=== PATIENT | female | born 1945 | race Caucasian/White ===

== ENCOUNTER → 2016-11-18 | Outpatient (CLI) | payer BC ==
[~2016-11-18] MED LIST: ASPCH81X PO; BENICAR PO; CALC-354 PO; CHOL20009 PO; ESTR1CRE PV; LEVO88TA PO; MULTCHW PO; NAPHDRO11 OP; SELE1TAB PO; VITA400C28 PO
== END | disposition home or self-care (01) ==
LOC: C.LABBFT 11:10
PROVIDERS: ATTEND Internal Medicine
DX: Z11.59 Encounter for screening for other viral diseases (principal); E03.9 Hypothyroidism, unspecified

== ENCOUNTER → 2017-05-20 | Outpatient (CLI) | payer BC ==
[2017-05-20 12:13] LABS: BASO % 0.3 %; BASO ABS # 0.02 K/uL (0-0.2); COMPLETE YES; EOS % 1.4 %; HEMATOCRIT 42.6 % (37-47); LYMPH ABS # 2.03 K/uL (1.2-3.4); MEAN CELL VOLUME 92.4 fL (80-100); MEAN CORPUSCULAR HGB CONC 33.6 g/dl (32-36); MEAN PLATELET VOLUME 11.3 fL (7.4-10.4); MONO % 10.1 %; NEUT % 56.2 %; PLATELET COUNT 233 K/uL (130-400); RED BLOOD COUNT 4.61 M/uL (4.2-5.4); WHITE BLOOD COUNT 6.34 K/uL (4.8-10.8)
[2017-05-20 12:25] LABS: ALT/SGPT 24 U/L (12-78); BLOOD UREA NITROGEN 23 mg/dl (7-18); BUN/CREATININE RATIO 16.2 (10-20); CALCIUM 9.7 mg/dl (8.5-10.1); CARBON DIOXIDE 24 mmol/L (21-32); CHLORIDE 106 mmol/L (98-107); CHOLESTEROL 194 mg/dl (0-200); GLUCOSE 86 mg/dl (70-99); POTASSIUM 4.6 mmol/L (3.5-5.1); SODIUM 138 mmol/L (136-145); TRIGLYCERIDES 61 mg/dl (0-150); VERY LOW DENSITY LIPOPROT CALC 12 mg/dl
[2017-05-20 12:35] LABS: ALB/GLOB RATIO 1.1 (0.9-2); ALKALINE PHOSPHATASE 65 U/L (45-117); AST/SGOT 20 U/L (15-37); CHOLESTEROL/HDL RATIO 2.7; HDL CHOLESTEROL 72 mg/dl; LDL CHOLESTEROL CALCULATED 110 mg/dl; THYROID STIMULATING HORMONE 0.798 uIu/ml (0.300-4.500)
[2017-05-20 15:14] LABS: URINE APPEARANCE CLEAR (CLEAR); URINE BILIRUBIN NEG (NEG); URINE COLOR YELLOW; URINE EPITHELIAL CELL AUTO 0-5 /lpf (0-5); URINE NITRITE NEG (NEG); URINE SPECIFIC GRAVITY 1.015 (1.000-1.030); UROBILINOGEN NEG (NEG); ZZUR CULT IF INDIC CLEAN CATCH YES
[2017-05-20 15:22] LABS: MANUAL MICROSCOPIC REQUIRED? NO; REVIEW REQ? NO
--- NOTE | 2017-06-03 08:11 | CODING QUERY MEDICAL NECESSITY ---
CQSUPPORTING DIAGNOSIS NEEDED A supporting diagnosis is required for the test/procedure performed on this patient in order for us to be reimbursed by the patient's insurance. Please provide a supporting diagnosis for the following test/procedure listed below next to the test name along with your signature. *If there is no additional diagnosis for this patient that would support the following test/procedure please document that below next to the test/procedure. Test(s)/Procedure(s) that require a supporting diagnosis: LIZET 05/20/17 URINE CULTURE Provider Signature: Date: Thank you Sarah Colin [employer] Information Management Once completed, please kindly fax back to [phone] For questions please call [phone]
== END | disposition home or self-care (01) ==
LOC: C.LABBFT 08:16
PROVIDERS: ATTEND Internal Medicine
DX: I10 Essential (primary) hypertension (principal); E03.9 Hypothyroidism, unspecified; Z13.6 Encounter for screening for cardiovascular disorders; M81.0 Age-related osteoporosis without current pathological fracture; N39.0 Urinary tract infection, site not specified

== ENCOUNTER → 2017-06-02 | Outpatient (CLI) | payer BC ==
[2017-06-02 12:20] LABS: BLOOD UREA NITROGEN 18 mg/dl (7-18); BUN/CREATININE RATIO 18.1 (10-20); CALCIUM 9.6 mg/dl (8.5-10.1); CARBON DIOXIDE 26 mmol/L (21-32); CHLORIDE 105 mmol/L (98-107); GLUCOSE 85 mg/dl (70-99); PHOSPHORUS 2.8 mg/dl (2.5-4.9); POTASSIUM 4.7 mmol/L (3.5-5.1); SODIUM 138 mmol/L (136-145)
== END | disposition home or self-care (01) ==
LOC: C.LABBFT 10:19
PROVIDERS: ATTEND Internal Medicine
DX: N28.9 Disorder of kidney and ureter, unspecified (principal)

== ENCOUNTER → 2017-07-23 | Outpatient (CLI) | payer BC ==
--- NOTE | 2017-07-23 14:20 | MAMMOGRAPHY REPORT ---
UNILATERAL LEFT DIGITAL SCREENING MAMMOGRAM TOMOSYNTHESIS WITH CAD: 07/23/2017 CLINICAL HISTORY: Asymptomatic. Personal history of breast cancer. TECHNIQUE: Breast tomosynthesis in addition to standard 2D mammography was performed. Current study was also evaluated with a Computer Aided Detection (CAD) system. Left CC and MLO 2-D and tomosynthes is images were obtained. COMPARISON: Comparison is made to exams dated: 07/22/2016 mammogram, 07/20/2015 mammogram, 07/18/2014 ma mmogram, 06/22/2013 mammogram, 06/18/2012 mammogram, and 06/18/2011 mammogram - [facility] er. BREAST COMPOSITION: There are scattered areas of fibroglandular density in the left breast. FINDINGS: There are no suspicious masses, calcifications, or areas of architectural distortion noted in the left breast. There has been no significant interval change compared to prior exams. A biopsy marker clip is again noted within the left upper outer quadrant. Scattered benign-appearing calcifi cations are not significantly changed. IMPRESSION: ACR BI-RADS CATEGORY 2: BENIGN There is no mammographic evidence of malignancy in the left breast. A 1 year screening mammogram is r ecommended. The patient will receive written notification of the results. Approximately 10% of breast cancers are not detected with mammography. A negative mammographic report should not delay biopsy if a clinically suggestive mass is present. Rena Boyd M.D. /:07/23/2017 12:09:29 Digital Analyst: Krysta SCHMITT(R)(M), [facility] letter sent: Normal 1/2 BI-RADS Code: ACR BI-RADS Category 2: Benign
== END | disposition home or self-care (01) ==
LOC: C.MAMM 11:41
PROVIDERS: ATTEND Obstetrics & Gynecology
DX: Z12.31 Encounter for screening mammogram for malignant neoplasm of breast (principal); Z90.11 Acquired absence of right breast and nipple

== ENCOUNTER → 2017-10-20 | Outpatient (CLI) | payer BC ==
[2017-10-20 13:16] LABS: CHOLESTEROL/HDL RATIO 1.6
== END | disposition home or self-care (01) ==
LOC: C.LABBFT 09:09
PROVIDERS: ATTEND Internal Medicine
DX: E78.5 Hyperlipidemia, unspecified (principal)

== ENCOUNTER → 2018-06-15 | Outpatient (CLI) | payer BC | END | disposition home or self-care (01) | LOC: C.LABBFT 08:54 | PROVIDERS: ATTEND Internal Medicine | DX: E03.9 Hypothyroidism, unspecified (principal) ==

== ENCOUNTER 2022-04-20 13:52 | Inpatient (IN) ==
[2022-04-20 14:32] LABS: Basophils # (auto) 0.02 K/uL (0-0.2); Basophils % (auto) 0.2 %; Eosinophils # (auto) 0.15 K/uL (0-0.5); Eosinophils % (auto) 1.3 %; Hematocrit (blood only) 42.8 % (37-47); Hemoglobin 14.5 g/dL (12.0-16.0); Immature Granulocytes # (auto) 0.03 K/uL (0.00-0.02); Immature Granulocytes % (auto) 0.3 %; Lymphocytes # (auto) 2.22 K/uL (1.2-3.4); Mean Corpuscular Hemoglobin 31.3 pg (25-34); Mean Corpuscular Hgb Conc 33.9 g/dL (32-36); Mean Corpuscular Volume 92.2 fL (80-100); Monocytes # (auto) 0.67 K/uL (0.11-0.59); Monocytes % (auto) 5.7 %; Neutrophils # (auto) 8.58 K/uL (1.4-6.5); Neutrophils % (auto) 73.5 %; Platelet Count 220 K/uL (130-400); RDW Coefficient of Variation 13.9 % (11.5-14.5); Red Blood Count 4.64 M/uL (4.2-5.4); White Blood Count 11.67 K/uL (4.8-10.8)
[2022-04-20 14:51] LABS: Albumin Globulin Ratio 1.7 (0.9-2); Albumin Level 4.4 gm/dl (3.4-5.0); BUN Creatinine Ratio 20.6 (10-20); Bilirubin,Total 1.5 mg/dl (0.2-1.0); Calcium 10.3 mg/dl (8.5-10.1); Creatinine Clr Calc Pharmacy 44.9 ml/min; Est GFR (African American) 61.9 ml/min; Est GFR (Non-African American) 53.4 ml/min; Globulin 2.6 gm/dl (2.5-4.0); Potassium 3.7 mmol/L (3.5-5.1)
[2022-04-20 15:38] LABS: Appearance Urine Clear (Clear); Bacteria Urine Automated 1+ (Negative); Bilirubin Urine Negative (Negative); Blood Urine Negative (Negative); Cast Urine Automated 0 /lpf (0-5); Color Urine Yellow; Glucose Urine UA Negative (Negative); Ketones Urine Negative (Negative); Leukocyte Esterase Urine Trace (Negative); Nitrite Urine Negative (Negative); Protein Urine Negative (Negative); RBC Urine Automated 0-4 /hpf (0-4); Specific Gravity Urine 1.011 (1.000-1.030); Urobilinogen Urine Negative (Negative); pH Urine 7.5 (4.5-7.5)
[2022-04-20] MEDS ORDERED: SODIUM CHLORIDE 0.9% 1000ML 1,000 ML IV ONE (15:38)
[2022-04-20] MEDS ORDERED: FAMOTIDINE 20MG IV PUSH 20 MG/5 ML SYR IV STA (15:38)
[2022-04-20] MEDS ORDERED: ACETAMINOPHEN 1,000 MG/100 ML VIAL IV STA (15:38)
[2022-04-20] MEDS ORDERED: ONDANSETRON INJ 2 MG/ML 2 ML VIAL IV STA (15:38)
[2022-04-20] MEDS ORDERED: MoRPHine SULFATE 2 MG/ML CARP IV STA (15:38)
[2022-04-20] MEDS ORDERED: OPTIRAY 320 100ml IV ONE (16:28)
--- NOTE | 2022-04-20 17:05 | CT Scan Report ---
CT abd pelvis IV con only CLINICAL HISTORY: upper abdominal pain TECHNIQUE: Helical axial images of the abdomen and pelvis were obtained and displayed. Automated dose lowering techniques and/or adjustment according to patient size were utilized for this exam. This e xam was performed with intravenous contrast. CT DOSE: 321.74 mGy.cm COMPARISON: None available at the time of this dictation. FINDINGS: Lower chest: Cardiomegaly is partially visualized. Liver: Unremarkable. No focal lesions are seen. Gallbladder and biliary tree: Pericholecystic fluid is seen. There is sharp tapering of a dilated com mon bile duct measuring up to 10 mm. Intrahepatic biliary ductal dilation is also seen. Pancreas: Dilated pancreatic duct is seen measuring up to 4 mm in the distal body. Spleen: Unremarkable. Adrenals: Unremarkable. Kidneys and ureters: Multiple renal cysts are seen. Bladder: Unremarkable. Reproductive organs: Multiple calcified fibroids are seen. Bowel: Diverticulosis is seen without evidence of diverticulitis. The appendix is unremarkable. Lymph nodes Retroperitoneal: Unremarkable. Mesenteric: Unremarkable. Pelvic: Unremarkable. Peritoneum: Normal. Vessels: Atherosclerotic calcifications are seen. Abdominal wall: Unremarkable. Bones: Degenerative changes in the visualized spine. IMPRESSION: There is dilation of the intra and extra hepatic biliary ducts and the pancreatic duct with sharp tap ering of the biliary duct as it traverses the pancreas. Findings are suspicious for pancreatic mass. Further evaluation can be performed by EUS and/or MRCP. ACT 112: Negative or not required by law. Electronically signed by: Slava Monae M.D. 04/20/2022 5:02 PM
--- NOTE | 2022-04-20 17:51 | History & Physical Report ---
Date of Service April 20, 2022 Assessment & Plan (1) Abdominal pain: Plan: Admit patient to a general medical bed CT reviewed, patient has benign abdominal pain and acute cholecystitis seems less likely. Pancreatic duct dilatation is more concerning for possible obstructing pancreatic mass Will order MRCP Follow LFTs We will keep on a low-fat diet for now We will asked GI to evaluate, depending on MRCP results patient may require an ERCP (2) Hypothyroidism: Plan: Continue levothyroxine as ordered (3) Hypertension: Plan: Continue olmesartan or pharmacy equivalent (4) Hyperlipidemia: Plan: Continue atorvastatin 20 mg for now History of Present Illness Chief Complaint: abd pain Primary Care Provider: Sami Funes MD This is a 76-year-old female with past medical history of hypertension, hypothyroidism, and breast cancer 2003 status post right mastectomy that presents today complaining of abdominal pain. Patient is accompanied by her and both are pleasant and good historians. Patient tells me that about 3 days ago she had an episode of abdominal pain. This was epigastric and felt like indigestion although it was much more severe and lasted much longer. She took an antacid but did not have any relief. The pain eventually resolved on its own. She did not think further about until earlier this morning when she had a recurrence of this pain. At this time it was much more severe and radiated to the center of her back. Again she took an antacid and waited and the pain seemed to resolve. At the time my evaluation she is entirely pain-free. She does note some fatigue but otherwise feels fine. She denies any other symptoms such as fever or chills, nausea or vomiting, or recent weight loss. She denies any changes to her urine. She does not feel that food made a difference in worsening or relieving her pain. Work-up involved LFTs which showed a mildly elevated bilirubin. CT of the abdomen and pelvis showed dilatation in the biliary tree that was suspicious for a pancreatic mass. Patient is now being admitted for further work-up. Allergies Allergy/AdvReac Type Severity Reaction Status Date / Time No Known Allergies Allergy Unknown Verified 11/27/21 09:30 Home Medications Medication Instructions Recorded Confirmed Type aspirin 81 mg tablet 81 mg PO DAILY tab 05/20/19 11/27/21 History cholecalciferol (vitamin D3) 50 2,000 units PO DAILY cap 05/20/19 11/27/21 History mcg (2,000 unit) capsule selenium 200 mcg tablet 200 mcg PO DAILY 05/20/19 11/27/21 History calcium carbonate 600 mg-vitamin 1 tab PO DAILY 11/16/19 11/27/21 History D3 20 mcg (800 unit) tablet (Caltrate with Vitamin D3) [id number] PO 11/16/19 11/27/21 History [Centrum Silver Women] vitamin E 400 unit capsule 400 units PO DAILY 11/16/19 11/27/21 History olmesartan 20 mg tablet 20 mg PO DAILY #90 tab 11/13/21 11/27/21 Rx cholecalciferol (vitamin D3) 50 50 mcg PO DAILY #30 cap 11/27/21 11/27/21 Rx mcg (2,000 unit) capsule atorvastatin 20 mg tablet 20 mg PO QPM #90 tab 02/06/22 Rx levothyroxine 75 mcg tablet 75 mcg PO DAILY #90 tab 02/06/22 Rx (Levoxyl) Past Med/Surg History Medical History Diverticulosis of colon History of malignant neoplasm of breast Hyperlipidemia Hypertension Hypothyroidism Internal hemorrhoids Menopausal symptoms Microscopic hematuria Osteoporosis Plantar fasciitis Postmenopausal Renal insufficiency Surgical History History of section History of mastectomy Family History Sister Stroke Leukemia Father Stroke Family/Other Diabetes Aunt Breast cancer Mother Intracranial hemorrhage Denies family history of Ovarian cancer Prostate cancer Myocardial infarction Colorectal cancer Social History Smoking Status: Never smoker Second Hand Exposure: No; Hx Alcohol Use: No Hx Substance Use: No Preferred Language: [place] Visual Impairment: No Limitations Hearing Ability: Normal marital status: Current Living Situation: Spouse current occupational status: retired current occupation: used to work at [employer] Feels Safe at Home: Yes Childhood Exposure to Second-Hand Smoke: Yes Dental Care, Regularly: Yes Physical Activity Frequency: Daily Seatbelt Use: always Sunscreen Use: Yes Review of Systems Constitutional: no fever, no chills, no weakness, no weight loss and no weight gain Eyes: as per Subjective / HPI Respiratory: no cough, no chest congestion, no dyspnea and no dyspnea on exertion Cardiovascular: no chest pain, no orthopnea, no palpitations, no lightheadedness and no edema Gastrointestinal: + abdominal pain and + heartburn; no nausea, no vomiting, no constipation and no diarrhea/loose stools Genitourinary: no dysuria, no difficulty urinating, no urinary frequency, no urinary hesitancy, no urinary urgency and no flank pain Musculoskeletal: no back pain, no neck pain, no joint pain, no stiffness and no myalgia Integumentary: no rash Neurologic: no gait abnormality, no unsteadiness, no falls and no generalized weakness Physical Exam Constitutional: cooperative; no acute distress nonjaundiced, anicteric Neck: trachea midline, no thyromegaly Respiratory: normal respiratory effort Auscultation: lungs clear to auscultation bilaterally; no crackles, no rales, no rhonchi and no wheezes Cardiovascular: Rate/Rhythm: regular rate and regular rhythm Heart Sounds: normal S1 and normal S2 Gastrointestinal (Abdomen): Inspection/Auscultation: abdomen normal to inspection Percussion/Palpation: abdomen soft; abdomen nontender, no guarding, abdomen not rigid and no hepatosplenomegaly Skin: no rashes, warm and dry Results & Data Results & Data ([facility]) Vital Signs (Past 12 Hours) Vital Signs Temp Pulse Pulse Resp BP BP Pulse Ox 04/20/22 17:25 87 17 166/88 H 98 04/20/22 14:22 67 20 174/87 H 100 04/20/22 13:57 36.6 C 79 18 172/96 H 97 Laboratory Results Laboratory Results WBC 11.67 K/uL (4.8-10.8) H 04/20/22 14:20 RBC 4.64 M/uL (4.2-5.4) 04/20/22 14:20 Hgb 14.5 g/dL (12.0-16.0) 04/20/22 14:20 Hct 42.8 % (37-47) 04/20/22 14:20 MCV 92.2 fL (80-100) 04/20/22 14:20 MCH 31.3 pg (25-34) 04/20/22 14:20 MCHC 33.9 g/dL (32-36) 04/20/22 14:20 RDW Std Deviation 47.0 fL (36.4-46.3) H 04/20/22 14:20 RDW Coeff of [place] 13.9 % (11.5-14.5) 04/20/22 14:20 Plt Count 220 K/uL (130-400) 04/20/22 14:20 MPV 11.0 fL (7.4-10.4) H 04/20/22 14:20 Immature Gran % (Auto) 0.3 % 04/20/22 14:20 Neut % (Auto) 73.5 % 04/20/22 14:20 Lymph % (Auto) 19.0 % 04/20/22 14:20 [place] % (Auto) 5.7 % 04/20/22 14:20 Eos % (Auto) 1.3 % 04/20/22 14:20 Baso % (Auto) 0.2 % 04/20/22 14:20 Neut # (Auto) 8.58 K/uL (1.4-6.5) H 04/20/22 14:20 Lymph # (Auto) 2.22 K/uL (1.2-3.4) 04/20/22 14:20 [place] # (Auto) 0.67 K/uL (0.11-0.59) H 04/20/22 14:20 Eos # (Auto) 0.15 K/uL (0-0.5) 04/20/22 14:20 Baso # (Auto) 0.02 K/uL (0-0.2) 04/20/22 14:20 Immature Gran # (Auto) 0.03 K/uL (0.00-0.02) H 04/20/22 14:20 Sodium 141 mmol/L (136-145) 04/20/22 14:20 Potassium 3.7 mmol/L (3.5-5.1) 04/20/22 14:20 Chloride 106 mmol/L (98-107) 04/20/22 14:20 Carbon Dioxide 26 mmol/L (21-32) 04/20/22 14:20 Anion Gap 9 (3-11) 04/20/22 14:20 BUN 21 mg/dl (6-23) 04/20/22 14:20 Creatinine 1.02 mg/dl (0.6-1.2) 04/20/22 14:20 Est Cr Clr Drug Dosing 44.9 ml/min 04/20/22 14:20 Est GFR ( Amer) 61.9 ml/min 04/20/22 14:20 Est GFR (Non-Af Amer) 53.4 ml/min 04/20/22 14:20 BUN/Creatinine Ratio 20.6 (10-20) H 04/20/22 14:20 Glucose 145 mg/dl (70-99(Fasting)) H 04/20/22 14:20 Calcium 10.3 mg/dl (8.5-10.1) H 04/20/22 14:20 Total Bilirubin 1.5 mg/dl (0.2-1.0) H 04/20/22 14:20 Direct Bilirubin 0.5 mg/dl (0-0.2) H 04/20/22 14:20 AST 128 U/L (13-39) H 04/20/22 14:20 ALT 52 U/L (7-52) 04/20/22 14:20 Alkaline Phosphatase 92 U/L (34-104) 04/20/22 14:20 Total Protein 7.0 gm/dl (6.0-8.3) 04/20/22 14:20 Albumin 4.4 gm/dl (3.4-5.0) 04/20/22 14:20 Globulin 2.6 gm/dl (2.5-4.0) 04/20/22 14:20 Albumin/Globulin Ratio 1.7 (0.9-2) 04/20/22 14:20 Lipase 35 U/L (11-82) 04/20/22 14:20 Urine Color Yellow 04/20/22 14:20 Urine Appearance Clear (Clear) 04/20/22 14:20 Urine pH 7.5 (4.5-7.5) 04/20/22 14:20 Ur Specific [place] 1.011 (1.000-1.030) 04/20/22 14:20 Urine Protein Negative (Negative) 04/20/22 14:20 Urine Glucose (UA) Negative (Negative) 04/20/22 14:20 Urine Ketones Negative (Negative) 04/20/22 14:20 Urine Blood Negative (Negative) 04/20/22 14:20 Urine Nitrite Negative (Negative) 04/20/22 14:20 Urine Bilirubin Negative (Negative) 04/20/22 14:20 Urine Urobilinogen Negative (Negative) 04/20/22 14:20 Ur Leukocyte Esterase Trace (Negative) H 04/20/22 14:20 Urine WBC (Auto) 1-5 /hpf (0-5) 04/20/22 14:20 Urine RBC (Auto) 0-4 /hpf (0-4) 04/20/22 14:20 U Hyaline Cast (Auto) 0 /lpf (0-5) 04/20/22 14:20 U Epithel Cells (Auto) 5-10 /lpf (0-5) H 04/20/22 14:20 Urine Bacteria (Auto) 1+ (Negative) H 04/20/22 14:20 Impressions Abdomen/Pelvis CT 04/20/22 15:38 CT abd pelvis IV con only CLINICAL HISTORY: upper abdominal pain TECHNIQUE: Helical axial images of the abdomen and pelvis were obtained and dis played. Automated dose lowering techniques and/or adjustment according to patient size were utilized for this exam. This exam was performed with intravenous contrast. CT DOSE: 321.74 mGy.cm COMPARISON: None available at the time of this dictation. FINDINGS: Lower chest: Cardiomegaly is partially visualized. Liver: Unremarkable. No focal lesions are seen. Gallbladder and biliary tree: Pericholecystic fluid is seen. There is sharp tapering of a dilated common bile duct measuring up to 10 mm. Intrahepatic biliary ductal dilation is also seen. Pancreas: Dilated pancreatic duct is seen measuring up to 4 mm in the distal body. Spleen: Unremarkable. Adrenals: Unremarkable. Kidneys and ureters: Multiple renal cysts are seen. Bladder: Unremarkable. Reproductive organs: Multiple calcified fibroids are seen. Bowel: Diverticulosis is seen without evidence of diverticulitis. The appendix is unremarkable. Lymph nodes Retroperitoneal: Unremarkable. Mesenteric: Unremarkable. Pelvic: Unremarkable. Peritoneum: Normal. Vessels: Atherosclerotic calcifications are seen. Abdominal wall: Unremarkable. Bones: Degenerative changes in the visualized spine. IMPRESSION: There is dilation of the intra and extra hepatic biliary ducts and the pancreatic duct with sharp tapering of the biliary duct as it traverses the pancreas. Findings are suspicious for pancreatic mass. Further evaluation can be performed by EUS and/or MRCP. ACT 112: Negative or not required by law. Electronically signed by: Slava Monae M.D. 04/20/2022 5:02 PM PG Care Time/CCT Total # of Minutes Spent Total Time Spent with Patient: Total time spent is greater than 50% in coordination of care (as documented) at patient's floor/unit and/or counseling patient: Coding Level of Care Code 07396 Initial Inpt Care Lvl 3 Diagnoses Hypothyroidism E03.9 Hypertension I10 Hypertension type: essential hypertension Hyperlipidemia E78.5 Abdominal pain R10.9 (1) Hypertension Hypertension type: essential hypertension Qualified Code(s): I10 - Essential (primary) hypertension
--- NOTE | 2022-04-20 18:24 | Emergency Department Note ---
Impression & Plan Epigastric abdominal pain, Common bile duct dilation, Dilated pancreatic duct, Elevated bilirubin ED Provider Note NAME: LULA HO AGE: 76 SEX: F ARRIVES VIA: Walk-In INFORMANT: Patient ED PROVIDER(S): Chencho Valerio MD CHIEF COMPLAINT: Abdominal pain PLAN: Disposition: Home MEDICAL DECISION MAKING: The patient is a pleasant 76-year-old woman with a past medical history of hypertension, hyperlipidemia who presents to the emergency department accompanied by her for evaluation of worsening abdominal pain which began last night after eating but resolved then returned and worsened this morning and has continued. She reports some mild associated nausea but denies any vomiting. She denies any fevers, chills, cough, congestion, symptoms. She reports the pain goes from her upper abdomen and radiates to her back. She denies any prior history of similar episodes. On arrival the patient is uncomfortable no acute distress, afebrile stable vital signs. She has mild epigastric tenderness without guarding or rebound. She has a negative Diana sign. WBC 11.6K, nonspecific. H/H and platelets within normal limits. Chemistry without metabolic acidosis. Total bilirubin 1.5 with direct bilirubin 0.5. AST 128 which are newly elevated. LFTs otherwise unremarkable. Lipase is not elevated. UA without convincing evidence of infection as epithelial cells are present and patient denies any urinary symptoms. CT of the abdomen pelvis was performed and demonstrates evidence of pancreatic ductal dilatation suspicious for underlying pancreatic mass. Upon reevaluation the patient was improved appearing following IV fluid hydration, APAP, morphine, famotidine, Zofran. I did review the patient's findings with her and plan for admission for further evaluation including ERCP. Case was discussed with Dr. Russ, [facility] [place], who will evaluate the patient for admission. Triage Nursing notes reviewed and agree them. Prior medical records reviewed Vital Signs: reviewed and remarkable for no significant abnormalities Differential diagnosis: Gastroenteritis, food borne illness, infections, appendicitis, diverticulitis, inflammatory bowel disease, obstruction, GI bleed, biliary pathology, volvulus, as well as other pathologies. ER treatment provided: See below. Diagnostics interpreted by me: ECG: NSR, 69 bpm, no ectopy, Nonspecific ST abnormality, no overt ST elevation or depression. Cardiac Monitoring: An order for continuous cardiac monitoring was placed and demonstrated NSR, 69 bpm, no ectopy. Laboratory studies: See below Imaging studies: See below Consultation(s): Case was discussed with Dr. Russ, [facility] hospitalist, who will evaluate the patient for admission. HPI: The patient is a pleasant 76-year-old woman with a past medical history of hypertension, hyperlipidemia who presents to the emergency department accompanied by her for evaluation of worsening abdominal pain which began last night after eating but resolved then returned and worsened this morning and has continued. She reports some mild associated nausea but denies any vomiting. She denies any fevers, chills, cough, congestion, symptoms. She reports the pain goes from her upper abdomen and radiates to her back. She denies any prior history of similar episodes. ROS: See above HPI for pertinent positives & negatives. A total of 10 systems reviewed and were otherwise negative. VITALS:See Below PHYSICAL EXAMINATION: GENERAL: Awake, alert, uncomfortable-appearing, in no distress HENT: Normocephalic, atraumatic. Oropharynx with dry mucous membranes and other samayoa unremarkable. EYES: Normal conjunctiva. Sclera non-icteric. NECK: Supple. No nuchal rigidity. FROM. No JVD. RESPIRATORY: Clear to auscultation. CARDIAC: Regular rate, normal rhythm. Extremities warm and well perfused. Pulses equal. ABDOMEN: Soft, non-distended. Mild epigastric tenderness without guarding or rebound. Negative Diana sign. No rebound or guarding. No masses. RECTAL: Deferred. MUSCULOSKELETAL: Chest examination reveals no tenderness. The back is symmetrical on inspection without obvious abnormality. There is no CVA tenderness to palpation. No joint edema. LOWER EXTREMITIES: Calves are equal size bilaterally and non-tender. No edema. No discoloration. NEURO: Normal sensorium. No sensory or motor deficits noted. SKIN: No rash or jaundice noted. Chencho Valerio MD Past Med/Surg History Medical History Diverticulosis of colon History of malignant neoplasm of breast Hyperlipidemia Hypertension Hypothyroidism Internal hemorrhoids Menopausal symptoms Microscopic hematuria Osteoporosis Plantar fasciitis Postmenopausal Renal insufficiency Surgical History History of section History of mastectomy Family History Sister Stroke Leukemia Father Stroke Family/Other Diabetes Aunt Breast cancer Mother Intracranial hemorrhage Denies family history of Ovarian cancer Prostate cancer Myocardial infarction Colorectal cancer Social History Smoking Status: Never smoker Second Hand Exposure: No; Do You Dip or Chew Tobacco: No; Tobacco Cessation Education Requested by Patient: No Hx Alcohol Use: No Hx Substance Use: No Preferred Language: German Communication Ability: Effective Visual Impairment: No Limitations Hearing Ability: Normal Timber Sprinkler Required: No Beliefs That Will Affect Care: None marital status: Current Living Situation: Spouse current occupational status: retired current occupation: used to work at [employer] Other Information That Helps Us Care for You: No Feels Safe at Home: Yes Safety Concerns: Feels Safe At This Time Childhood Exposure to Second-Hand Smoke: Yes Dental Care, Regularly: Yes Physical Activity Frequency: Daily Seatbelt Use: always Sunscreen Use: Yes Assistive Devices: None Allergies Allergies Allergy/AdvReac Type Severity Reaction Status Date / Time No Known Allergies Allergy Unknown Verified 04/20/22 19:15 Home Meds Home Medications Medication Instructions Recorded Confirmed cholecalciferol (vitamin D3) 50 2,000 units PO DAILY cap 05/20/19 04/20/22 mcg (2,000 unit) capsule selenium 200 mcg tablet 200 mcg PO DAILY 05/20/19 04/20/22 calcium carbonate 600 mg-vitamin 1 tab PO DAILY 11/16/19 04/20/22 D3 20 mcg (800 unit) tablet (Caltrate with Vitamin D3) vitamin E 400 unit capsule 400 units PO DAILY 11/16/19 04/20/22 aspirin 81 mg tablet,delayed 81 mg PO DAILY 04/20/22 04/20/22 release nbqgvdmuqmcv-Zs-xkua-minerals 1 tab PO DAILY 04/20/22 04/20/22 Previous Rx's Medication Instructions Recorded olmesartan 20 mg tablet 20 mg PO DAILY #90 tab 11/13/21 atorvastatin 20 mg tablet 20 mg PO QPM #90 tab 02/06/22 levothyroxine 75 mcg tablet 75 mcg PO DAILY #90 tab 02/06/22 (Levoxyl) Results & Data (ED) Vital Signs Vital Signs - 24 hr 04/20/22 13:57 04/20/22 14:22 04/20/22 17:25 Temperature 36.6 C Temperature Source Temporal Artery Scan Pulse Rate 79 Pulse Rate [Right Finger] 67 87 Respiratory Rate 18 20 17 Respiratory Effort / Characteristics Non-Labored Spontaneous Non-Labored Respiratory Depth Normal Normal Blood Pressure 172/96 H Blood Pressure [Right Arm] 174/87 H 166/88 H Blood Pressure Mean 121 Blood Pressure Mean [Right Arm] 116 114 Blood Pressure Position [Right Arm] Lying Pulse Oximetry 97 100 98 Oxygen Delivery Method Room Air Room Air Sepsis Recent Fever Within 48 Hours No Sepsis New/Unexplained Change in Mental Status No Sepsis Action Taken by Nursing No Action Required Laboratory Data Attestation: I reviewed the patient's lab results. Result diagrams: 04/20/22 14:20 04/20/22 14:20 Lab Results 04/20/22 04/20/22 04/20/22 Range/Units 14:20 14:20 14:20 WBC 11.67 H (4.8-10.8) K/uL RBC 4.64 (4.2-5.4) M/uL Hgb 14.5 (12.0-16.0) g/dL Hct 42.8 (37-47) % MCV 92.2 (80-100) fL MCH 31.3 (25-34) pg MCHC 33.9 (32-36) g/dL RDW Std Deviation 47.0 H (36.4-46.3) fL RDW Coeff of [place] 13.9 (11.5-14.5) % Plt Count 220 (130-400) K/uL MPV 11.0 H (7.4-10.4) fL Immature Gran % (Auto) 0.3 % Neut % (Auto) 73.5 % Lymph % (Auto) 19.0 % Boundary % (Auto) 5.7 % Eos % (Auto) 1.3 % Baso % (Auto) 0.2 % Neut # (Auto) 8.58 H (1.4-6.5) K/uL Lymph # (Auto) 2.22 (1.2-3.4) K/uL Boundary # (Auto) 0.67 H (0.11-0.59) K/uL Eos # (Auto) 0.15 (0-0.5) K/uL Baso # (Auto) 0.02 (0-0.2) K/uL Immature Gran # (Auto) 0.03 H (0.00-0.02) K/uL Sodium 141 (136-145) mmol/L Potassium 3.7 (3.5-5.1) mmol/L Chloride 106 (98-107) mmol/L Carbon Dioxide 26 (21-32) mmol/L Anion Gap 9 (3-11) BUN 21 (6-23) mg/dl Creatinine 1.02 (0.6-1.2) mg/dl Est Cr Clr Drug Dosing 44.9 ml/min Est GFR ( Amer) 61.9 ml/min Est GFR (Non-Af Amer) 53.4 ml/min BUN/Creatinine Ratio 20.6 H (10-20) Glucose 145 H (70-99(Fasting)) mg/dl Calcium 10.3 H (8.5-10.1) mg/dl Total Bilirubin 1.5 H (0.2-1.0) mg/dl Direct Bilirubin 0.5 H (0-0.2) mg/dl AST 128 H (13-39) U/L ALT 52 (7-52) U/L Alkaline Phosphatase 92 (34-104) U/L Total Protein 7.0 (6.0-8.3) gm/dl Albumin 4.4 (3.4-5.0) gm/dl Globulin 2.6 (2.5-4.0) gm/dl Albumin/Globulin Ratio 1.7 (0.9-2) Lipase 35 (11-82) U/L Urine Color Urine Appearance (Clear) Urine pH (4.5-7.5) Ur Specific Fischer (1.000-1.030) Urine Protein (Negative) Urine Glucose (UA) (Negative) Urine Ketones (Negative) Urine Blood (Negative) Urine Nitrite (Negative) Urine Bilirubin (Negative) Urine Urobilinogen (Negative) Ur Leukocyte Esterase (Negative) Urine WBC (Auto) (0-5) /hpf Urine RBC (Auto) (0-4) /hpf U Hyaline Cast (Auto) (0-5) /lpf U Epithel Cells (Auto) (0-5) /lpf Urine Bacteria (Auto) (Negative) 04/20/22 Range/Units 14:20 WBC (4.8-10.8) K/uL RBC (4.2-5.4) M/uL Hgb (12.0-16.0) g/dL Hct (37-47) % MCV (80-100) fL MCH (25-34) pg MCHC (32-36) g/dL RDW Std Deviation (36.4-46.3) fL RDW Coeff of [place] (11.5-14.5) % Plt Count (130-400) K/uL MPV (7.4-10.4) fL Immature Gran % (Auto) % Neut % (Auto) % Lymph % (Auto) % Boundary % (Auto) % Eos % (Auto) % Baso % (Auto) % Neut # (Auto) (1.4-6.5) K/uL Lymph # (Auto) (1.2-3.4) K/uL Boundary # (Auto) (0.11-0.59) K/uL Eos # (Auto) (0-0.5) K/uL Baso # (Auto) (0-0.2) K/uL Immature Gran # (Auto) (0.00-0.02) K/uL Sodium (136-145) mmol/L Potassium (3.5-5.1) mmol/L Chloride (98-107) mmol/L Carbon Dioxide (21-32) mmol/L Anion Gap (3-11) BUN (6-23) mg/dl Creatinine (0.6-1.2) mg/dl Est Cr Clr Drug Dosing ml/min Est GFR ( Amer) ml/min Est GFR (Non-Af Amer) ml/min BUN/Creatinine Ratio (10-20) Glucose (70-99(Fasting)) mg/dl Calcium (8.5-10.1) mg/dl Total Bilirubin (0.2-1.0) mg/dl Direct Bilirubin (0-0.2) mg/dl AST (13-39) U/L ALT (7-52) U/L Alkaline Phosphatase (34-104) U/L Total Protein (6.0-8.3) gm/dl Albumin (3.4-5.0) gm/dl Globulin (2.5-4.0) gm/dl Albumin/Globulin Ratio (0.9-2) Lipase (11-82) U/L Urine Color Yellow Urine Appearance Clear (Clear) Urine pH 7.5 (4.5-7.5) Ur Specific [place] 1.011 (1.000-1.030) Urine Protein Negative (Negative) Urine Glucose (UA) Negative (Negative) Urine Ketones Negative (Negative) Urine Blood Negative (Negative) Urine Nitrite Negative (Negative) Urine Bilirubin Negative (Negative) Urine Urobilinogen Negative (Negative) Ur Leukocyte Esterase Trace H (Negative) Urine WBC (Auto) 1-5 (0-5) /hpf Urine RBC (Auto) 0-4 (0-4) /hpf U Hyaline Cast (Auto) 0 (0-5) /lpf U Epithel Cells (Auto) 5-10 H (0-5) /lpf Urine Bacteria (Auto) 1+ H (Negative) Administered Medications Atorvastatin Calcium (Atorvastatin 20 Mg Tab) 20 mg PO QPM ALICJA Stop: 05/20/22 21:31 Last Admin: 04/20/22 22:33 Dose: 20 mg Documented by: [id number] Discontinued Medications Sodium Chloride (Nss 1000ml) 1,000 mls @ 999 mls/hr IV .Q1H1M ONE Stop: 04/20/22 16:38 Last Infusion: 04/20/22 16:58 Dose: 0 mls/hr Documented by: [id number] Admin: 04/20/22 15:47 Dose: 999 mls/hr Documented by: [id number] Acetaminophen (Ofirmev) 1,000 mg in 100 mls @ 400 mls/hr IV NOW STA Stop: 04/20/22 15:52 Last Infusion: 04/20/22 16:20 Dose: 0 mls/hr Documented by: [id number] Admin: 04/20/22 15:47 Dose: 400 mls/hr Documented by: [id number] Famotidine (Pepcid 20mg Iv Push) 20 mg in 5 mls @ 2.5 mls/min IV NOW STA Stop: 04/20/22 15:39 Last Admin: 04/20/22 15:47 Dose: 2.5 mls/min Documented by: [id number] Ioversol (Optiray 320 100ml) 94 ml IV ONCE ONE Stop: 04/20/22 16:29 Last Admin: 04/20/22 16:28 Dose: 94 ml Documented by: [id number] Morphine Sulfate (Morphine Sulfate 2 Mg/Ml Carp) 2 mg IV NOW STA Stop: 04/20/22 15:39 Last Admin: 04/20/22 15:47 Dose: 2 mg Documented by: [id number] Ondansetron HCl (Ondansetron Inj 2 Mg/Ml 2 Ml Vial) 4 mg IV NOW STA Stop: 04/20/22 15:39 Last Admin: 04/20/22 15:47 Dose: 4 mg Documented by: [id number] Imaging Data Radiologist's Impression: Abdomen/Pelvis CT 04/20/22 15:38 CT abd pelvis IV con only CLINICAL HISTORY: upper abdominal pain TECHNIQUE: Helical axial images of the abdomen and pelvis were obtained and displayed. Automated dose lowering techniques and/or adjustment according to patient size were utilized for this exam. This exam was performed with intravenous contrast. CT DOSE: 321.74 mGy.cm COMPARISON: None available at the time of this dictation. FINDINGS: Lower chest: Cardiomegaly is partially visualized. Liver: Unremarkable. No focal lesions are seen. Gallbladder and biliary tree: Pericholecystic fluid is seen. There is sharp tapering of a dilated common bile duct measuring up to 10 mm. Intrahepatic biliary ductal dilation is also seen. Pancreas: Dilated pancreatic duct is seen measuring up to 4 mm in the distal body. Spleen: Unremarkable. Adrenals: Unremarkable. Kidneys and ureters: Multiple renal cysts are seen. Bladder: Unremarkable. Reproductive organs: Multiple calcified fibroids are seen. Bowel: Diverticulosis is seen without evidence of diverticulitis. The appendix is unremarkable. Lymph nodes Retroperitoneal: Unremarkable. Mesenteric: Unremarkable. Pelvic: Unremarkable. Peritoneum: Normal. Vessels: Atherosclerotic calcifications are seen. Abdominal wall: Unremarkable. Bones: Degenerative changes in the visualized spine. IMPRESSION: There is dilation of the intra and extra hepatic biliary ducts and the pancreatic duct with sharp tapering of the biliary duct as it traverses the p ancreas. Findings are suspicious for pancreatic mass. Further evaluation can be performed by EUS and/or MRCP. ACT 112: Negative or not required by law. Electronically signed by: Slava Monae M.D. 04/20/2022 5:02 PM Discharge Plan Visit Data Chief Complaint: Abdominal Pain Stated Complaint: ABD PAIN INTO BACK ED Provider: Chencho Valerio Discharge Problem: Epigastric abdominal pain, Common bile duct dilation, Dilated pancreatic duct, Elevated bilirubin Patient Disposition: Admitted As Inpatient Discharge Instructions Interventions: ED Discharge Assessment Last Done: 04/20/22 20:48
[2022-04-20] MEDS ORDERED: ACETAMINOPHEN 325 MG TAB PO PRN (21:32)
[2022-04-20] MEDS ORDERED: POLYETHYLENE (MIRALAX) 17 GM PACK PO PRN (21:32)
[2022-04-20] MEDS ORDERED: ONDANSETRON INJ 2 MG/ML 2 ML VIAL IV PRN (21:32)
[2022-04-20] MEDS: ATORVASTATIN 20 MG TAB PO SCH (22:33)
--- NOTE | 2022-04-20 23:11 | Magnetic Resonance Report ---
MR MRCP CLINICAL HISTORY: r/o pancreatic mass/duct obstruction TECHNIQUE: Multiplanar multisequence MR images of the abdomen were obtained, as per MRCP protocol. . COMPARISON: None available at the time of this dictation. FINDINGS: Exam is limited by patient motion. Lower chest: No acute abnormality Liver: Unremarkable. No focal lesions are seen. Gallbladder and biliary tree: No bladder wall thickening in surrounding edema is seen. The common jolene e duct is enlarged measuring 10 mm in diameter. Intrahepatic bile ducts are also dilated. On MRCP seq uences, there is a round filling defect in the distal common bile duct past the junction with the méndez creatic duct. Pancreas: Dilation of the pancreatic duct is seen with a diameter of approximately 4 mm in the distal pancreatic body. Spleen: Unremarkable. Adrenals: Unremarkable. Kidneys and ureters: Renal cysts are seen. Bowel: Unremarkable. Lymph nodes Retroperitoneal: Unremarkable. Mesenteric: Unremarkable. Peritoneum: Normal Vessels: Unremarkable. Abdominal wall: Unremarkable. Bones: Unremarkable. IMPRESSION: Dilation of the biliary ducts and pancreatic duct. There is a rounded filling defect in the distal co mmon bile duct favored to represent choledocholithiasis, pancreatic head mass is considered less like ly. Correlation with ERCP is recommended. ACT 112: Negative or not required by law. Electronically signed by: Slava Monae M.D. 04/20/2022 11:09 PM
[2022-04-21] MEDS: LEVOTHYROXINE SODIUM 75 MCG TABLET PO SCH (05:37)
[2022-04-21 06:28] LABS: Albumin Globulin Ratio 1.8 (0.9-2); Albumin Level 3.6 gm/dl (3.4-5.0); BUN Creatinine Ratio 19.4 (10-20); Bilirubin,Total 4.9 mg/dl (0.2-1.0); Calcium 8.6 mg/dl (8.5-10.1); Creatinine Clr Calc Pharmacy 46.6 ml/min; Est GFR (African American) 64.9 ml/min; Magnesium 1.8 mg/dl (1.7-2.4); Potassium 4.5 mmol/L (3.5-5.1); Total Protein 5.6 gm/dl (6.0-8.3)
--- NOTE | 2022-04-21 08:00 | Gastrointestinal Consultation ---
Date of Consultation April 21, 2022 Assessment & Plan (1) Choledocholithiasis: 76 yo female with abd pain x 3 days, elevated LFTs and MRCP with CBD of 10mm and filling defect s/o choledocholithiasis. - NPO for ERCP today. - Received a dose of abx. - Hold ASA. - Case added int he OR for this afternoon with . Patient aware. (2) Epigastric abdominal pain: (3) Common bile duct dilation: History of Present Illness Reason for Consultation: choledocholithiasis Attending Physician: Dickson Russ DO History of Present Illness 76 yo female who presented to the ER with complaints of 3 days of intermittent then worsening LUQ and epigastric pain with assocaited nausea. She was found to have elevated transaminases, AP and bilirubin. Increased this AM with AST of 250, ALT of 185, AP of 110, and t bili of 4.9. MRCP showed CBD of 10 mm with filling defect concerning for stone. Panc duct 4mm in the body.. THis AM she is feeling a bit better. Less pain. No nausea or vomiting. Lipase was normal. Afebrile. WBC 12,000. Allergies Allergy/AdvReac Type Severity Reaction Status Date / Time No Known Allergies Allergy Unknown Verified 04/20/22 19:15 Home Medications Medication Instructions Recorded Confirmed Type cholecalciferol (vitamin D3) 50 2,000 units PO DAILY cap 05/20/19 04/20/22 History mcg (2,000 unit) capsule selenium 200 mcg tablet 200 mcg PO DAILY 05/20/19 04/20/22 History calcium carbonate 600 mg-vitamin 1 tab PO DAILY 11/16/19 04/20/22 History D3 20 mcg (800 unit) tablet (Caltrate with Vitamin D3) vitamin E 400 unit capsule 400 units PO DAILY 11/16/19 04/20/22 History olmesartan 20 mg tablet 20 mg PO DAILY #90 tab 11/13/21 04/20/22 Rx atorvastatin 20 mg tablet 20 mg PO QPM #90 tab 02/06/22 04/20/22 Rx levothyroxine 75 mcg tablet 75 mcg PO DAILY #90 tab 02/06/22 04/20/22 Rx (Levoxyl) aspirin 81 mg tablet,delayed 81 mg PO DAILY 04/20/22 04/20/22 History release kqiwmowjcibq-Bd-nqta-minerals 1 tab PO DAILY 04/20/22 04/20/22 History Patient History Medical History Diverticulosis of colon History of malignant neoplasm of breast Hyperlipidemia Hypertension Hypothyroidism Internal hemorrhoids Menopausal symptoms Microscopic hematuria Osteoporosis Plantar fasciitis Postmenopausal Renal insufficiency Surgical History History of section History of mastectomy Family History Sister Stroke Leukemia Father Stroke Family/Other Diabetes Aunt Breast cancer Mother Intracranial hemorrhage Denies family history of Ovarian cancer Prostate cancer Myocardial infarction Colorectal cancer Social History Smoking Status: Never smoker Second Hand Exposure: No; Do You Dip or Chew Tobacco: No; Tobacco Cessation Education Requested by Patient: No Hx Alcohol Use: No Hx Substance Use: No Preferred Language: Dutch Communication Ability: Effective Visual Impairment: No Limitations Hearing Ability: Normal Toggle Press Operator Required: No Beliefs That Will Affect Care: None marital status: Current Living Situation: Spouse current occupational status: retired current occupation: used to work at [employer] Other Information That Helps Us Care for You: No Feels Safe at Home: Yes Safety Concerns: Feels Safe At This Time Childhood Exposure to Second-Hand Smoke: Yes Dental Care, Regularly: Yes Physical Activity Frequency: Daily Seatbelt Use: always Sunscreen Use: Yes Assistive Devices: None Review of Systems Review of Systems: All systems reviewed & are unremarkable except as noted in HPI & below Physical Exam Constitutional: WD/WN, vitals as above Respiratory: normal respiratory effort, lungs clear to auscultation Cardiovascular: RRR, no murmur, no edema Gastrointestinal (Abdomen): normal bowel sounds, soft, nontender, no hepatosplenomegaly Results & Data ([facility]) Vital Signs (Past 12 Hours) Vital Signs Temp Pulse Resp BP Pulse Ox 04/21/22 07:50 36.9 C 84 16 126/74 94 04/20/22 22:24 37.1 C 81 18 144/87 H 96 04/20/22 21:00 37.5 C 92 H 18 159/90 H 95
--- NOTE | 2022-04-21 08:47 | Anesthesiology Consultation ---
Date of Service April 21, 2022 Assessment & Plan (1) Encounter for pre-operative examination: Chart Review Chart Review: Acceptable Risk for Surgery and Patient NOT seen in Pre Admission Testing Consults Requested none History Surgery Operation Date: 04/21/22 10:30 Proposed Procedures p Esophagogastroduodenoscopy - Keeley Wilkinson DO Height/Weight Height: 5 ft 4 in Weight: 69.2 kg Allergies Allergy/AdvReac Type Severity Reaction Status Date / Time No Known Allergies Allergy Unknown Verified 04/20/22 19:15 Medications Home Medications Medication Instructions Recorded Confirmed Last Taken cholecalciferol (vitamin D3) 50 2,000 units PO DAILY cap 05/20/19 04/20/22 Unknown mcg (2,000 unit) capsule selenium 200 mcg tablet 200 mcg PO DAILY 05/20/19 04/20/22 Unknown calcium carbonate 600 mg-vitamin 1 tab PO DAILY 11/16/19 04/20/22 Unknown D3 20 mcg (800 unit) tablet (Caltrate with Vitamin D3) vitamin E 400 unit capsule 400 units PO DAILY 11/16/19 04/20/22 Unknown olmesartan 20 mg tablet 20 mg PO DAILY #90 tab 11/13/21 04/20/22 Unknown atorvastatin 20 mg tablet 20 mg PO QPM #90 tab 02/06/22 04/20/22 Unknown levothyroxine 75 mcg tablet 75 mcg PO DAILY #90 tab 02/06/22 04/20/22 Unknown (Levoxyl) aspirin 81 mg tablet,delayed 81 mg PO DAILY 04/20/22 04/20/22 Unknown release acgncimekfid-Km-vuel-minerals 1 tab PO DAILY 04/20/22 04/20/22 Unknown Active Medications Generic Name Dose Route Start Last Admin Trade Name Freq PRN Reason Stop Dose Admin Atorvastatin Calcium 20 mg 04/20/22 21:32 04/20/22 22:33 Atorvastatin 20 Mg Tab PO 05/20/22 21:31 20 mg QPM ALICJA Administration Levothyroxine Sodium 75 mcg 04/21/22 06:30 04/21/22 05:37 Levothyroxine Sodium 75 Mcg Tablet PO 05/21/22 06:29 75 mcg DAILYBB ALICJA Administration Past Medical History Medical History Diverticulosis of colon History of malignant neoplasm of breast Hyperlipidemia Hypertension Hypothyroidism Internal hemorrhoids Menopausal symptoms Microscopic hematuria Osteoporosis Plantar fasciitis Postmenopausal Renal insufficiency Past Family History Family History Sister Stroke Leukemia Father Stroke Family/Other Diabetes Aunt Breast cancer Mother Intracranial hemorrhage Denies family history of Ovarian cancer Prostate cancer Myocardial infarction Colorectal cancer Past Surgical History Surgical History History of section History of mastectomy Social History Smoking Status: Never smoker Do You Dip or Chew Tobacco: No Hx Alcohol Use: No Hx Substance Use: No Physical Exam Vital Signs Last Vital Signs Temp 98.4 F 04/21/22 07:50 Pulse 84 04/21/22 07:50 Resp 16 04/21/22 07:50 BP 126/74 04/21/22 07:50 Pulse Ox 94 04/21/22 07:50 Testing Laboratory Results 04/20/22 14:20 04/21/22 05:36 Urine Color Yellow 04/20/22 14:20 Urine Appearance Clear (Clear) 04/20/22 14:20 Urine pH 7.5 (4.5-7.5) 04/20/22 14:20 Ur Specific [place] 1.011 (1.000-1.030) 04/20/22 14:20 Urine Protein Negative (Negative) 04/20/22 14:20 Urine Glucose (UA) Negative (Negative) 04/20/22 14:20 Urine Ketones Negative (Negative) 04/20/22 14:20 Urine Nitrite Negative (Negative) 04/20/22 14:20 Ur Leukocyte Esterase Trace (Negative) H 04/20/22 14:20 Urine WBC (Auto) 1-5 /hpf (0-5) 04/20/22 14:20 Urine RBC (Auto) 0-4 /hpf (0-4) 04/20/22 14:20 U Hyaline Cast (Auto) 0 /lpf (0-5) 04/20/22 14:20 U Epithel Cells (Auto) 5-10 /lpf (0-5) H 04/20/22 14:20 Urine Bacteria (Auto) 1+ (Negative) H 04/20/22 14:20 04/20/22 14:20 Urine Culture - Preliminary Urine,Clean Catch Gram negative bacilli Gram negative bacilli#2 Electrocardiogram Date: 04/20/22 Findings: + NSR @
[2022-04-21] MEDS: OLMESARTAN MEDOXOMIL 20 MG TAB PO SCH (08:59)
[2022-04-21] MEDS ORDERED: fentaNYL citrate 100 MCG/2 ML VIAL ONE (10:27)
[2022-04-21] MEDS ORDERED: PROPOFOL IV EMULSION 10 MG/ML 20 ML VIAL IV ONE (10:29)
[2022-04-21] MEDS ORDERED: SUCCINYLCHOLINE CHLORIDE 20 MG/ML 10 ML VIAL IV ONE (10:29)
[2022-04-21] MEDS ORDERED: LIDOCAINE 2% 20 MG/ML 5 ML SYR IV ONE (10:29)
[2022-04-21] MEDS ORDERED: INDOMETHACIN 50 MG SUPP PR ONE (10:57)
--- NOTE | 2022-04-21 10:57 | History & Physical Bridge Note ---
Date of Service April 21, 2022 History & Physical Bridge Note I have examined the patient, reviewed the History & Physical and in the interval since the performance of the History & Physical I have noted the following changes of clinical significance: no changes noted. The patient presented with abdominal pain and was found to have MRCP showing a stone in her distal common bile duct with a subsequent rise in her liver associated enzymes and bilirubin. MR MRCP CLINICAL HISTORY: r/o pancreatic mass/duct obstruction TECHNIQUE: Multiplanar multisequence MR images of the abdomen were obtained, as per MRCP protocol. . COMPARISON: None available at the time of this dictation. FINDINGS: Exam is limited by patient motion. Lower chest: No acute abnormality Liver: Unremarkable. No focal lesions are seen. Gallbladder and biliary tree: No bladder wall thickening in surrounding edema is seen. The common bile duct is enlarged measuring 10 mm in diameter. Intrahepatic bile ducts are also dilated. On MRCP sequences, there is a round filling defect in the distal common bile duct past the junction with the pancreatic duct. Pancreas: Dilation of the pancreatic duct is seen with a diameter of approximately 4 mm in the distal pancreatic body. Spleen: Unremarkable. Adrenals: Unremarkable. Kidneys and ureters: Renal cysts are seen. Bowel: Unremarkable. Lymph nodes Retroperitoneal: Unremarkable. Mesenteric: Unremarkable. Peritoneum: Normal Vessels: Unremarkable. Abdominal wall: Unremarkable. Bones: Unremarkable. IMPRESSION: Dilation of the biliary ducts and pancreatic duct. There is a rounded filling defect in the distal common bile duct favored to represent choledocholithiasis, pancreatic head mass is considered less likely. Correlation with ERCP is recommended. ERCP planned for biliary decompression. We have discussed the risks and benefits of the procedure to include bleeding infection perforation pain, failed biliary cannulation and post ERCP pancreatitis.
[2022-04-21] MEDS ORDERED: fentaNYL citrate 100 MCG/2 ML VIAL IV PRN (11:43)
[2022-04-21] MEDS ORDERED: ePHEDrine sulfate 50 MG/ML AMP IV PRN (11:43)
[2022-04-21] MEDS ORDERED: ATROPINE SULFATE 0.1 MG/ML 10ML SYR IV PRN (11:43)
[2022-04-21] MEDS ORDERED: ONDANSETRON INJ 2 MG/ML 2 ML VIAL ONE (11:55)
[2022-04-21] MEDS ORDERED: DEXAMETHASONE SOD INJ 4 MG/ML VIAL ONE (11:55)
--- NOTE | 2022-04-21 12:14 | Post Operative Brief Note ---
Immediate Post Op Note v1 Date of Surgery April 21, 2022 Pre & Post Diagnosis Operation Date: 04/21/22 10:30 Pre-Op Diagnosis: Choledocholithiasis Epigastric Abdominal Pain Common Bile Duct Dilation Post-Op Diagnosis: Cholangitis Common Bile Duct Stones I identified the patient and participated in the time-out.: Yes Procedure Operation Date: 04/21/22 10:30 Actual Procedures p Esophagogastroduodenoscopy, Endoscopic retrograde cholangiopancreatography(Not Applicable) - Keeley Wilkinson DO Surgeon Keeley Wilkinson DO Career Manager none Estimated Blood Loss 0 Findings Consistent with Post-Op Diagnosis
--- NOTE | 2022-04-21 12:15 | Communication Note ---
Date of Service: April 21, 2022 The patient underwent ERCP today. She was found to have numerous stones and sludge material within her common bile duct and pus within the duct. A biliary sphincterotomy was performed, gallstone extraction performed, and a biliary stent was placed. Recommendations Repeat ERCP in 6 to 8 weeks for stent removal Surgery consultation to discuss cholecystectomy May have clear liquids from my perspective Avoid nonsteroidals and anticoagulation for 5 days please Broad-spectrum antibiotic coverage for total of 10 days please
--- NOTE | 2022-04-21 12:20 | Electrocardiogram Report ---
Test Reason : Blood Pressure : / mmHG Vent. Rate : 069 BPM Atrial Rate : 069 BPM P-R Int : 146 ms QRS Dur : 088 ms QT Int : 418 ms P-R-T Axes : 090 039 066 degrees QTc Int : 447 ms Poor data quality, interpretation may be adversely affected Normal sinus rhythm Nonspecific ST abnormality Abnormal ECG No previous ECGs available Confirmed by Sami Machado ([id number]) on 04/21/2022 12:20:05 PM Referred By: REFERRED SELF Confirmed By:Mejia Machado
[2022-04-21] MEDS ORDERED: CIPROFLOXACIN / D5W 400 MG/200 ML BAG IV STA (12:22)
--- NOTE | 2022-04-21 12:22 | GI REPORT ---
Patient Name: Marah Medina Procedure Date: 04/21/2022 11:38 AM Date of : 1945 Admit Type: Inpatient Age: 76 Gender: Female Attending MD: Keeley Wilkinson DO Procedure: ERCP Providers: Keeley Wilkinson DO Referring MD: Pratik Valdovinos Md, Lorrie Washington DO, Sami Funes Indications: Abdominal pain of suspected biliary origin, Abnormal MRCP Medicines: General Anesthesia Complications: No immediate complications. Estimated blood loss: Minimal. Estimated Blood Loss: Estimated blood loss was minimal. Procedure: Pre-Anesthesia Assessment: - Prior to the procedure, a History and Physical was performed, and patient medications, allergies and sensitivities were reviewed. The patient's tolerance of previous anesthesia was reviewed. - The risks and benefits of the procedure and the sedation options and risks were discussed with the patient. All questions were answered and informed consent was obtained. - Patient identification and proposed procedure were verified prior to the procedure by the physician, the nurse and the amplifier mechanic. The procedure was verified in the pre-procedure area in the procedure room. - Pre-procedure physical examination revealed no contraindications to sedation. - ASA Grade Assessment: II - A patient with mild systemic disease. - After reviewing the risks and benefits, the patient was deemed in satisfactory condition to undergo the procedure. - The anesthesia plan was to use general anesthesia. - Immediately prior to administration of medications, the patient was re-assessed for adequacy to receive sedatives. - The heart rate, respiratory rate, oxygen saturations, blood pressure, adequacy of pulmonary ventilation, and response to care were monitored throughout the procedure. - The physical status of the patient was re-assessed after the procedure. After obtaining informed consent, the scope was passed under direct vision. Throughout the procedure, the patient's blood pressure, pulse, and oxygen saturations were monitored continuously. The Duodenoscope was introduced through the mouth, and advanced to the duodenum and used to inject contrast into the bile duct. The ERCP was accomplished without difficulty. The patient tolerated the procedure well. Findings: The software specialist film was normal. The esophagus was successfully intubated under direct vision without detailed examination of the pharynx, larynx, and associated structures, and upper GI tract. The upper GI tract was grossly normal. The major papilla was normal. The bile duct was deeply cannulated with the short-nosed traction sphincterotome and guidewire. Contrast was injected. I personally interpreted the bile duct images. Contrast extended to the entire biliary tree. The lower third of the main bile duct and middle third of the main bile duct contained filling defect(s) thought to be a stone and sludge, the cystic duct appeared patent with filling of the gallbladder. The CBD was dilated to 10 mm. Biliary sphincterotomy was made with a monofilament Fusion OMNI sphincterotome using ERBE electrocautery. There was no post-sphincterotomy bleeding. To discover objects, the biliary tree was swept with a 15 mm balloon starting at the bifurcation. Sludge was swept from the duct. A few stones were removed. No stones remained. Pus was swept from the duct. One 10 Fr by 8 cm biliary stent with a single external flap and a single internal flap was placed 8 cm into the common bile duct. Bile flowed through the stent. The stent was in good position. The endoscope was withdrawn from the patient. The total fluoroscopy exposure time was 42 seconds. Indomethacin 100 mg was given via suppository to decrease the risk of post-ERCP pancreatitis (PEP). Impression: - The major papilla appeared normal. - A filling defect consistent with a stone and sludge was seen on the cholangiogram. - Choledocholithiasis was found. Complete removal was accomplished by biliary sphincterotomy and balloon extraction. - The biliary tree was swept and pus was found. - One biliary stent was placed into the common bile duct. - Indomethacin given to decrease risk of post-ERCP pancreatitis. Recommendation: - Avoid aspirin and nonsteroidal anti-inflammatory medicines for 5 days. - Clear liquid diet today. - Use broad spectrum antibiotics for 10 days. - Repeat ERCP in 6-8 weeks to remove stent. - Refer to a surgeon to discuss timing of cholecystectomy. Keeley Wilkinson D.O. Keeley Wilkinson DO 04/21/2022 12:21:50 PM This report has been signed electronically. Note Initiated On: 04/21/2022 11:38 AM Number of Addenda: 0 I attest to the content of the Intraoperative Record and orders documented therein, exceptions below {[id number]}
--- NOTE | 2022-04-21 12:43 | Anesthesiology Progress Note ---
Date of Service April 21, 2022 Anesthesia Post Procedure Vital Signs Vital Signs: Temp Pulse Pulse Pulse Resp BP BP 04/21/22 12:40 97.9 F 67 20 133/82 04/21/22 12:30 62 20 131/71 04/21/22 12:20 61 16 108/64 04/21/22 12:14 97.3 F L 67 16 103/57 L 04/21/22 07:50 98.4 F 84 16 126/74 04/20/22 22:24 98.8 F 81 18 144/87 H 04/20/22 21:00 99.5 F 92 H 18 159/90 H 04/20/22 19:16 66 18 147/72 H 04/20/22 17:25 87 17 166/88 H 04/20/22 14:22 67 20 174/87 H 04/20/22 13:57 97.9 F 79 18 172/96 H Pulse Ox 04/21/22 12:40 96 04/21/22 12:30 100 04/21/22 12:20 100 04/21/22 12:14 97 04/21/22 07:50 94 04/20/22 22:24 96 04/20/22 21:00 95 04/20/22 19:16 98 04/20/22 17:25 98 04/20/22 14:22 100 04/20/22 13:57 97 Pain Intensity Abdomen: Pain Intensity: 7 Transfer of Care Handoff Completed per policy Notes Mental Status: alert / awake / arousable and participated in evaluation Patient Amnestic to Procedure: Yes Nausea / Vomiting: adequately controlled Pain: adequately controlled Airway Patency, RR, SpO2: stable & adequate BP & HR: stable & adequate Hydration State: stable & adequate Anesthetic Complications: no major complications apparent and Pt Satisfied with anesthetic care
[2022-04-21] MEDS ORDERED: CIPROFLOXACIN / D5W 400 MG/200 ML BAG IV SCH (14:00)
--- NOTE | 2022-04-21 14:19 | Hospitalist Progress Note ---
Date of Service April 21, 2022 Assessment & Plan (1) Choledocholithiasis: Plan: - Pt hospitalized for abd pain with findings on CT of dilated intra and extraheptic biliary ducts as well as pancreatic - MRCP ordered -- findings c/f choledocholithiasis, GI consulted, appreciate assistance - LFTs uptrending today--pt made NPO and underwent ERCP, stones/pus swept for the CBD - Was given a dose of Indomethacin post procedure to help prevent post ERCP pancreatitis - Continue clear liquid diet for now - Will need referral to general surgery for lap julianna at a later date - For now, broad spectrum abx (appears GI ordered Cipro, will d/c and start on oral Augmentin) (2) Abdominal pain: Plan: - Secondary to choledocholithiasis (3) Hypothyroidism: Plan: - Continue levothyroxine as ordered (4) Hypertension: Plan: - Continue olmesartan or pharmacy equivalent per formulary (5) Hyperlipidemia: Plan: - Continue atorvastatin 20 mg Plan: Monitor today on clear liquids. Can advance to low fat in AM if ok'd by GI and anticipate home tomorrow. Will set up referral with general surgery for lap julianna eval. Empiric abx. Follow up labs including LFTs in AM. Plan to be d/w Dr. Valdovinos. Admission and Anticipated Discharge Date Admission Date: April 20, 2022 Subjective Patient seen on daily rounds this morning. She is resting comfortably in bed, denies abdominal pain, n/v/d, f/c, headache, or gu symptoms. Pt hospitalized last evening w/ abd pain, underwent MRCP which demonstrated CBD and pancreatic duct dilation. She is for ERCP today with GI and has been NPO. Review of Systems Review of Systems: All systems reviewed and are unremarkable except as noted in HPI and below. Denies fever, chills, fatigue, headache, nasal congestion, sore throat, cough, chest pain, shortness of breath, palpitations, orthopnea, PND, abdominal pain, n/v/d, constipation, dysuria, hematuria, frequency, back pain, joint pain or swelling, easy bruising or bleeding, skin lesions or rashes. Physical Exam Physical Exam: GENERAL: 76 yo well-developed, well-nourished WF. NAD. LUNGS: Clear to auscultation bilaterally. 2/6 ILSA CARDIOVASCULAR: Regular rate and rhythm. No M/G/R. No JVD. ABDOMEN: Soft, non-tender and non-distended. No palpable masses. Neg degroot's sign. BS normoactive x 4 quad. EXTREMITIES: No edema. Non-tender. Peripheral pulses +2/4. NEUROLOGIC: A&O x3. PSYCHIATRIC: Cooperative. Appropriate mood and affect. SKIN: Warm, dry, intact. No rashes or lesions. Results & Data Results & Data ([facility]) Vital Signs (Past 12 Hours) Vital Signs Temp Pulse Pulse Pulse Resp BP Pulse Ox 04/21/22 13:10 37.0 C 63 20 150/84 H 96 04/21/22 13:00 36.6 C 64 18 145/84 H 94 04/21/22 12:50 63 19 145/79 H 95 04/21/22 12:40 36.6 C 67 20 133/82 96 04/21/22 12:30 62 20 131/71 100 04/21/22 12:20 61 16 108/64 100 04/21/22 12:14 36.3 C L 67 16 103/57 L 97 04/21/22 07:50 36.9 C 84 16 126/74 94 Laboratory Results 04/20/22 14:20 04/21/22 05:36 TBili=4.9 IMJ=712 GDX=227 Alk ijyk=596 Diagnostic Findings Cholangiopancreatography MRI 04/20/22 17:52 MR MRCP CLINICAL HISTORY: r/o pancreatic mass/duct obstruction TECHNIQUE: Multiplanar multisequence MR images of the abdomen were obtained, as per MRCP protocol. . COMPARISON: None available at the time of this dictation. FINDINGS: Exam is limited by patient motion. Lower chest: No acute abnormality Liver: Unremarkable. No focal lesions are seen. Gallbladder and biliary tree: No bladder wall thickening in surrounding edema is seen. The common bile duct is enlarged measuring 10 mm in diameter. Intrahepatic bile ducts are also dilated. On MRCP sequences, there is a round filling defect in the distal common bile duct past the junction with the pancreatic duct. Pancreas: Dilation of the pancreatic duct is seen with a diameter of approximately 4 mm in the distal pancreatic body. Spleen: Unremarkable. Adrenals: Unremarkable. Kidneys and ureters: Renal cysts are seen. Bowel: Unremarkable. Lymph nodes Retroperitoneal: Unremarkable. Mesenteric: Unremarkable. Peritoneum: Normal Vessels: Unremarkable. Abdominal wall: Unremarkable. Bones: Unremarkable. IMPRESSION: Dilation of the biliary ducts and pancreatic duct. There is a rounded filling defect in the distal common bile duct favored to represent choledocholithiasis, pancreatic head mass is considered less likely. Correlation with ERCP is recommended. ACT 112: Negative or not required by law. Electronically signed by: Slava Monae M.D. 04/20/2022 11:09 PM PG Care Time/CCT Total # of Minutes Spent Total Time Spent with Patient: Total time spent is greater than 50% in coordination of care (as documented) at patient's floor/unit and/or counseling patient: Coding Level of Care Code 03440 Subseq Hosp Care Lvl 2 Diagnoses Abdominal pain R10.9 Hypothyroidism E03.9 Hypertension I10 Hypertension type: essential hypertension Hyperlipidemia E78.5 Choledocholithiasis K80.50 (1) Hypertension Hypertension type: essential hypertension Qualified Code(s): I10 - Essential (primary) hypertension
[2022-04-21] MEDS ORDERED: COUGH DROP (SUGAR FREE) LOZ 24 LOZ/1 BOX BUCCAL ONE (14:56)
[2022-04-21] MEDS: AMOXICILLIN/CLAVULANATE 875 MG TAB PO SCH (17:14)
[2022-04-21] MEDS: ATORVASTATIN 20 MG TAB PO SCH (20:47)
[2022-04-22] MEDS: LEVOTHYROXINE SODIUM 75 MCG TABLET PO SCH (05:28)
[2022-04-22] MEDS: OLMESARTAN MEDOXOMIL 20 MG TAB PO SCH (07:24)
[2022-04-22] MEDS: AMOXICILLIN/CLAVULANATE 875 MG TAB PO SCH (07:24)
--- NOTE | 2022-04-22 08:15 | Fluoroscopy Report ---
[place] ERCP biliary ductal CLINICAL HISTORY: ERCP DONE IN THE [facility].R. COMPARISON STUDY: MR MRCP from 04/20/2022 FLUOROSCOPY TIME: 42 seconds. FLUOROSCOPIC IMAGES: 26 FINDINGS: ERCP was performed with catheterization of the common bile duct and what appears to be belo w dilatation/extraction. Please see intraoperative report for further evaluation. IMPRESSION: Status post ERCP. ACT 112: Negative or not required by law. Electronically signed by: Paras Andrade M.D. 04/22/2022 8:12 AM
[2022-04-22 09:53] LABS: Albumin Globulin Ratio 1.5 (0.9-2); Albumin Level 3.5 gm/dl (3.4-5.0); BUN Creatinine Ratio 20.2 (10-20); Bilirubin,Total 4.4 mg/dl (0.2-1.0); Creatinine Clr Calc Pharmacy 48.6 ml/min; Est GFR (African American) 68.3 ml/min; Est GFR (Non-African American) 58.9 ml/min; Globulin 2.4 gm/dl (2.5-4.0); Total Protein 5.9 gm/dl (6.0-8.3)
--- NOTE | 2022-04-22 10:00 | Gastroenterology Progress Note ---
Date of Service April 22, 2022 Assessment & Plan (1) Choledocholithiasis: Plan: 76 yo female s/p ERCP for choledocholithiasis/cholangitis with sphincterotomy and drainage of pus and stones form the CBD yesterday. Stent in place. Feeling well. - OK to discharge from GI standpoint - Will need 10 days of abx. - Surgical eval for cholecystectomy. - We will arrange a repeat ERCP in 6-8 weeks for stent removal. - Please call with questions. Admission and Anticipated Discharge Date Admission Date: April 20, 2022 Subjective Feels OK this AM. No abd pain. No nausea or vomiting. No fevers. AM labs are pending. Review of Systems Review of Systems: All systems reviewed & are unremarkable except as noted in HPI & below Physical Exam Constitutional: WD/WN, vitals as above Respiratory: normal respiratory effort, lungs clear to auscultation Cardiovascular: RRR, no murmur, no edema Gastrointestinal (Abdomen): normal bowel sounds, soft, nontender, no hepatosplenomegaly Results & Data ([facility]) Vital Signs (Past 12 Hours) Vital Signs Temp Pulse Resp BP Pulse Ox 04/22/22 07:02 36.7 C 72 16 149/77 H 97 04/22/22 02:46 36.7 C 59 L 16 144/73 H 96 04/21/22 22:58 36.7 C 57 L 16 121/73 95
--- NOTE | 2022-04-22 10:51 | Discharge Summary ---
Date of Service April 22, 2022 Admission HPI Per Admitting Provider This is a 76-year-old female with past medical history of hypertension, hypothyroidism, and breast cancer 2003 status post right mastectomy that presents today complaining of abdominal pain. Patient is accompanied by her and both are pleasant and good historians. Patient tells me that about 3 days ago she had an episode of abdominal pain. This was epigastric and felt like indigestion although it was much more severe and lasted much longer. She took an antacid but did not have any relief. The pain eventually resolved on its own. She did not think further about until earlier this morning when she had a recurrence of this pain. At this time it was much more severe and radiated to the center of her back. Again she took an antacid and waited and the pain seemed to resolve. At the time my evaluation she is entirely pain-free. She does note some fatigue but otherwise feels fine. She denies any other symptoms such as fever or chills, nausea or vomiting, or recent weight loss. She denies any changes to her urine. She does not feel that food made a difference in worsening or relieving her pain. Work-up involved LFTs which showed a mildly elevated bilirubin. CT of the abdomen and pelvis showed dilatation in the biliary tree that was suspicious for a pancreatic mass. Patient is now being admitted for further work-up. Principal Diagnosis 1. Choledocholithiasis 2. Transaminitis and hyperbilirubinemia d/t #1 (improving) Discharge Exam GENERAL: 76 yo well-developed, well-nourished WF. NAD. LUNGS: Clear to auscultation bilaterally. 2/6 ILSA CARDIOVASCULAR: Regular rate and rhythm. No M/G/R. No JVD. ABDOMEN: Soft, non-tender and non-distended. No palpable masses. Neg degroot's sign. BS normoactive x 4 quad. EXTREMITIES: No edema. Non-tender. Peripheral pulses +2/4. NEUROLOGIC: A&O x3. PSYCHIATRIC: Cooperative. Appropriate mood and affect. SKIN: Warm, dry, intact. No rashes or lesions. Discharge Data Allergies Allergy/AdvReac Type Severity Reaction Status Date / Time No Known Allergies Allergy Unknown Verified 04/20/22 19:15 Consultations 04/20/22 17:22 ED Decision to Admit Stat 04/20/22 21:32 Consult Gastroenterology Routine Procedures Performed Operation Date: 04/21/22 10:30 Actual Procedures p Esophagogastroduodenoscopy, (Not Applicable) - Keeley Wilkinson DO s Endoscopic retrograde cholangiopancreatography(Not Applicable) - Keeley Wilkinson DO Ordered Studies Abdomen/Pelvis CT 04/20/22 15:38 CT abd pelvis IV con only CLINICAL HISTORY: upper abdominal pain TECHNIQUE: Helical axial images of the abdomen and pelvis were obtained and displayed. Automated dose lowering techniques and/or adjustment according to patient size were utilized for this exam. This exam was performed with intravenous contrast. CT DOSE: 321.74 mGy.cm COMPARISON: None available at the time of this dictation. FINDINGS: Lower chest: Cardiomegaly is partially visualized. Liver: Unremarkable. No focal lesions are seen. Gallbladder and biliary tree: Pericholecystic fluid is seen. There is sharp tapering of a dilated common bile duct measuring up to 10 mm. Intrahepatic biliary ductal dilation is also seen. Pancreas: Dilated pancreatic duct is seen measuring up to 4 mm in the distal body. Spleen: Unremarkable. Adrenals: Unremarkable. Kidneys and ureters: Multiple renal cysts are seen. Bladder: Unremarkable. Reproductive organs: Multiple calcified fibroids are seen. Bowel: Diverticulosis is seen without evidence of diverticulitis. The appendix is unremarkable. Lymph nodes Retroperitoneal: Unremarkable. Mesenteric: Unremarkable. Pelvic: Unremarkable. Peritoneum: Normal. Vessels: Atherosclerotic calcifications are seen. Abdominal wall: Unremarkable. Bones: Degenerative changes in the visualized spine. IMPRESSION: There is dilation of the intra and extra hepatic biliary ducts and the pancreatic duct with sharp tapering of the biliary duct as it traverses the pancreas. Findings are suspicious for pancreatic mass. Further evaluation can be performed by EUS and/or MRCP. ACT 112: Negative or not required by law. Electronically signed by: Slava Monae M.D. 04/20/2022 5:02 PM Cholangiopancreatography MRI 04/20/22 17:52 MR MRCP CLINICAL HISTORY: r/o pancreatic mass/duct obstruction TECHNIQUE: Multiplanar multisequence MR images of the abdomen were obtained, as per MRCP protocol. . COMPARISON: None available at the time of this dictation. FINDINGS: Exam is limited by patient motion. Lower chest: No acute abnormality Liver: Unremarkable. No focal lesions are seen. Gallbladder and biliary tree: No bladder wall thickening in surrounding edema is seen. The common bile duct is enlarged measuring 10 mm in diameter. Intrahepatic bile ducts are also dilated. On MRCP sequences, there is a round filling defect in the distal common bile duct past the junction with the pancreatic duct. Pancreas: Dilation of the pancreatic duct is seen with a diameter of approximately 4 mm in the distal pancreatic body. Spleen: Unremarkable. Adrenals: Unremarkable. Kidneys and ureters: Renal cysts are seen. Bowel: Unremarkable. Lymph nodes Retroperitoneal: Unremarkable. Mesenteric: Unremarkable. Peritoneum: Normal Vessels: Unremarkable. Abdominal wall: Unremarkable. Bones: Unremarkable. IMPRESSION: Dilation of the biliary ducts and pancreatic duct. There is a rounded filling defect in the distal common bile duct favored to represent choledocholithiasis, pancreatic head mass is considered less likely. Correlation with ERCP is recommended. ACT 112: Negative or not required by law. Electronically signed by: Slava Monae M.D. 04/20/2022 11:09 PM Endo Retro Cholangiopancreatogram 04/21/22 00:00 [place] ERCP biliary ductal CLINICAL HISTORY: ERCP DONE IN THE [facility].R. COMPARISON STUDY: MR MRCP from 04/20/2022 FLUOROSCOPY TIME: 42 seconds. FLUOROSCOPIC IMAGES: 26 FINDINGS: ERCP was performed with catheterization of the common bile duct and what appears to be below dilatation/extraction. Please see intraoperative report for further evaluation. IMPRESSION: Status post ERCP. ACT 112: Negative or not required by law. Electronically signed by: Paras Andrade M.D. 04/22/2022 8:12 AM Hospital Course (1) Choledocholithiasis: - Pt hospitalized for abd pain with findings on CT of dilated intra and extraheptic biliary ducts as well as pancreatic - MRCP ordered -- findings c/f choledocholithiasis, GI consulted, appreciate assistance - LFTs uptrending today--pt made NPO and underwent ERCP, stones/pus swept for the CBD - Was given a dose of Indomethacin post procedure to help prevent post ERCP pancreatitis - Continue clear liquid diet given 04/21 post ERCP - Will need referral to general surgery for lap julianna at a later date -- arranged to be seen in office by Dr. Campbell - Broad spectrum abx (Augmentin) x 10 days - Diet advanced to low fat for lunch which she tolerated well. Will plan for d/c today. (2) Abdominal pain: - Secondary to choledocholithiasis - Resolved (3) Hypothyroidism: - Continue levothyroxine as ordered (4) Hypertension: - Continue olmesartan or pharmacy equivalent per formulary (5) Hyperlipidemia: - Continue atorvastatin 20 mg Patient is medically and hemodynamically stable for discharge home today. Outpatient f/u with GI and general surgery. Course of antibiotics. Follow up with family doctor within 1 week. Plan of care has been d/w Dr. Valdovinos who has also seen and evaluated this patient prior to discharge. Total Time Total Time Spent Total Time Spent (In Minutes): >30 minutes Discharge Plan Discharge Items Patient Disposition: Home - Self-Care Reason For Visit: ABDOMINAL PAIN Discharge Diagnosis: Gallstones Activity: Resume your previous activity Non-emergency contact: Primary Care Provider, Surgeon and [employer] Salesperson Call non-emergency contact if: you have any medication questions and your symptoms worsen Follow-up/Referrals: Sami Funes MD [Primary Care Provider] - Ry Campbell DO [Surgeon] - 04/23/22 11:00 am (seen in office as soon as possible to set up cholecystectomy) Diet: Low Fat Addtl Attending Provider Instructions: You were hospitalized due to abdominal pain that was found to be due to gallstones that were stuck in the tube that connects the tube from your gallbladder and the tube from your liver, this tube is known as the common bile duct. The stones were removed and a stent was placed in the tube. This stent will need to be removed in about 6-8 weeks. Gastroenterology will follow up with you to have this procedure done. You will need to be on antibiotics for a total of 10 days. You have been started on Augmentin here in the hospital. This will need to be continued upon your return home. Your next dose is due on 04/22/22 at dinner. Please take this antibiotic with food. It can cause an upset stomach and/or diarrhea- taking the medication with food will help curb side effects. Please complete the entire course, no pills should be left behind. Lastly, because you are passing these stones which are coming from your gallbladder, you will need to have your gallbladder removed in order to prevent this from happening again. We are setting you up with a general surgeon (Dr. Campbell) to see within one week to arrange for your gallbladder to be removed. Your appointment information will be listed on your discharge paperwork. Follow up with gastroenterology as scheduled. Maintain a low fat diet. Recommend follow up with your family doctor within 1 week of discharge. If you have any questions/concerns after you are discharged, call the nonemergency number listed on your discharge paperwork. In the event of a medical emergency, call 911. Pending Studies at Discharge: No Stand-Alone Forms: My [facility], Smoking Cessation Medications and DC Order Prescriptions: New amoxicillin-pot clavulanate 875-125 mg tablet 1 tab PO BID Qty: 17 RF: 0 Continued olmesartan 20 mg tablet 20 mg PO DAILY Qty: 90 RF: 3 atorvastatin 20 mg tablet 20 mg PO QPM Qty: 90 RF: 3 levothyroxine [Levoxyl] 75 mcg tablet 75 mcg PO DAILY Qty: 90 RF: 3 vitamin E 400 unit capsule 400 units PO DAILY RF: 0 calcium carbonate-vitamin D3 [Caltrate with Vitamin D3] 600 mg(1,500mg) -800 unit tablet 1 tab PO DAILY RF: 0 cholecalciferol (vitamin D3) 2,000 unit capsule 2,000 units PO DAILY RF: 0 selenium 200 mcg tablet 200 mcg PO DAILY RF: 0 aspirin 81 mg Tablet,Delayed Release (Dr/Ec) 81 mg PO DAILY RF: 0 lipvkeqdsbie-Sn-digs-minerals Tablet 1 tab PO DAILY RF: 0 Discharge Orders: Discharge Order (Routine); Ordered 04/22/22 Ordered By: Sakshi Bonilla Admission Data Admit Date/Time: 04/20/22 17:52 Attending Provider: Pratik Valdovinos Admit Provider: Dickson Russ Primary Care Provider: Sami Funes Other Providers: Dickson Russ ; Lorrie Washington Other Interventions: Discharge Summary Assessment (RN) Last Done: 04/22/22 10:47 Supervising Physician Co-Signing Physician Notes Patient seen, chart reviewed, and case discussed with LATONYA Bonilla. 76yo F who presented with choledocolithiasis s/p ERCP and stend placement. Doing well with downtrending LFTs, and resolution of abdominal pain clinically. Has followup w/ general surgery to arrange cholecystectomy and will be on Abx as above for 10 days. Clinically stable at bedside, no RUQ pain on palpation, HR RRR, and lungs are clear. Patient is pleasant and conversant in no acute distress, and with no additional questions. Expresses surprise she had gallstones as noone in her family had them, otherwise no concerns at time of discharge. F/u appts as above. Coding Level of Care Code D/C DAY MANAGEMENT >30 MINS Diagnoses Choledocholithiasis K80.50 Abdominal pain R10.9 Hypothyroidism E03.9 Hypertension I10 Hypertension type: essential hypertension Hyperlipidemia E78.5
--- NOTE | 2022-04-25 15:10 | Coding Query ---
CODING QUERY To promote full compliance with coding requirements relating to patient care, provider participation is requested in all cases of broke beater operator uncertainty. Please assist us with the question(s) below: Coding Question(s): Patient admitted with choledocholithiasis - . ERCP with removal of CBD stone. Brief OP note documented cholangitis as well as 's final GI note. documented pus in the CBD. Seeking to determine if cholangitis was treated during this Inpatient Stay. Please check below. Thank you. Jimbo PedersonRIP MACHINE OPERATOR [facility] Physician's Response(s): ___X___ Pt was treated for cholangitis Pt was not treated for cholangitis Cannot clinically correlate if cholangitis was treated Other: Please document: Principal Diagnosis: "that condition established after study, to be chiefly responsible for occasioning the admission of the patient to the hospital for care." Co-Existing Principal Diagnosis: "when two or more diagnoses equally meet the criteria for principal diagnosis as determined by the circumstances of admission, diagnostic work up, and/or therapy provided, and the Alphabetic Index, Tabular List, or another coding guideline does not provide sequencing direction, any one of the diagnoses may be sequenced first." "When the physician has documented what appears to be a current diagnosis in the body of the record, but has not included the diagnosis in the final diagnostic statement, the physician should be asked whether the diagnosis should be added." (Source Coding Clinic 2 QTR90. p3-4) NAGI
== END 2022-04-22 15:20 | disposition home or self-care (01) | DRG 446 ==
LOC: ED 13:52 → SUATTDRO 17:52 → 3E 17:52